=== PATIENT | female | born 1965 | race African-American/Black ===

== ENCOUNTER 2021-08-22 13:32 | Emergency (ER) | payer MEDICAID ==
[~2021-08-22] VITALS: Ht 165.1 cm; Wt 104.0 kg
[2021-08-22 13:45] VITALS: BP 121/72
== END 2021-08-22 15:30 | disposition left against medical advice (07) ==
LOC: ER 13:32
DX: Z53.21 Procedure and treatment not carried out due to patient leaving prior to being seen by health care provider (principal)

== ENCOUNTER 2021-08-25 19:09 | Emergency (ER) | payer SELFPAY ==
[~2021-08-25] VITALS: Ht 165.1 cm; Wt 105.0 kg
[2021-08-25] MEDS ORDERED: HYDROCODONE/ACETAMINOPHEN 5/325MG TABLET PO ONE (22:45)
[2021-08-25] MEDS ORDERED: ONDANSETRON 4MG ODT PO ONE (22:45)
[2021-08-25] MEDS ORDERED: TRAM50TA3 MT (23:09)
[2021-08-25] MEDS ORDERED: IBUP-2030 MT (23:09)
[2021-08-25 23:38] VITALS: BP 153/92
== END 2021-08-25 23:30 | disposition home or self-care (01) ==
LOC: ER 19:09
DX: S59.812A Other specified injuries left forearm, initial encounter (principal); S49.82XA Other specified injuries of left shoulder and upper arm, initial encounter; S93.492A Sprain of other ligament of left ankle, initial encounter; K08.89 Other specified disorders of teeth and supporting structures; W01.198A Fall on same level from slipping, tripping and stumbling with subsequent striking against other object, initial encounter; Y93.01 Activity, walking, marching and hiking; Y92.480 Sidewalk as the place of occurrence of the external cause
CPT/HCPCS: 73060; 73090; 73610; 99284; Q0162